=== PATIENT | female | born 1960 ===

== ENCOUNTER 2020-08-21 07:37 | Outpatient (REF) | payer OTHER, SELFPAY ==
[2020-08-21 10:23] LABS: Alanine Aminotransferase 14 U/L (0-31); Albumin Level 4.1 g/dL (3.5-5.0); Alkaline Phosphatase 73 U/L (39-117); Anion Gap 13 (12-20); Aspartate Amino Transferase 20 U/L (5-31); Bilirubin Total 0.6 mg/dL (0.0-1.0); Blood Urea Nitrogen 13 mg/dL (9-16); Calcium 8.7 mg/dL (8.4-10.2); Carbon Dioxide 26 mmol/L (22-29); Chloride 104 mmol/L (96-108); Cholesterol 225 mg/dL; Estimated Glomerular Filt Rate > 60; Glucose Fasting 102 mg/dL (60-99); HDL Cholesterol 51 mg/dL; LDL Cholesterol Calculated 152 mg/dl; Potassium 4.3 mmol/l (3.3-5.1); Sodium 139 mmol/L (135-145); Total Protein 7.6 g/dL (6.5-8.0); Triglycerides 112 mg/dL
== END 2020-08-21 07:38 | disposition home or self-care (01) ==
LOC: HO.LAB 07:37
PROVIDERS: PCP Internal Medicine; Visit Provider Internal Medicine
DX: E78.00 Pure hypercholesterolemia, unspecified (principal)
CPT/HCPCS: 80053; 80061

== ENCOUNTER 2021-07-02 06:51 | Outpatient (REF) | payer OTHER, SELFPAY ==
[2021-07-02 07:49] LABS: Alanine Aminotransferase 16 U/L (0-31); Albumin Level 4.2 g/dL (3.5-5.0); Alkaline Phosphatase 71 U/L (39-117); Anion Gap 11 (12-20); Aspartate Amino Transferase 19 U/L (5-31); Bilirubin Total 0.8 mg/dL (0.0-1.0); Blood Urea Nitrogen 9 mg/dL (9-16); Calcium 9.3 mg/dL (8.4-10.2); Carbon Dioxide 28 mmol/L (22-29); Chloride 106 mmol/L (96-108); Cholesterol 214 mg/dL; Estimated Glomerular Filt Rate > 60; Glucose Fasting 119 mg/dL (60-99); HDL Cholesterol 47 mg/dL; LDL Cholesterol Calculated 146 mg/dl; Potassium 4.5 mmol/L (3.3-5.1); Sodium 140 mmol/L (135-145); Total Protein 7.8 g/dL (6.5-8.0); Triglycerides 107 mg/dL
== END 2021-07-02 06:52 | disposition home or self-care (01) ==
LOC: HO.LAB 06:51
PROVIDERS: PCP Internal Medicine; Visit Provider Internal Medicine
DX: E78.5 Hyperlipidemia, unspecified (principal)
CPT/HCPCS: 36415; 80053; 80061

== ENCOUNTER 2021-08-02 12:34 | Emergency (ER) | payer OTHER, SELFPAY ==
[2021-08-02 13:45] VITALS: BP 122/79; PULSE 78; RESP 19; TEMP 36.6; O2SAT 97; BMI 36.1
--- NOTE | 2021-08-02 14:25 | ED.GENADULT ---
HPI - General Adult General Chief complaint: General Medical Stated complaint: covid + - lab & xray Time Seen by Provider: 08/02/21 13:48 Source: patient Mode of arrival: ambulatory Limitations: no limitations History of Present Illness HPI narrative: 60-year-old female with a history of hypertension and hyperlipidemia who presents to the ER for evaluation of possible pneumonia. She reports talking to her primary care doctor today who sent her to the ER to make sure she did not have pneumonia. She reports being diagnosed with COVID-19 about 2 weeks ago. She is slowly starting to feel better. She has no cough no shortness of breath no dyspnea on exertion and no chest pain. She feels mild generalized weakness but it is getting better as she is slowly doing more and more each day. She has no fever or chills at home. She has no calf tenderness or pain. She reports intermittent muscle weakness which is worse when she stays in bed for long periods of time. Overall her symptoms are significantly improved since she was 1st diagnosed. MD complaint: Generalized weakness Onset (ago): week(s) (2) Radiation: non-radiation Severity: mild Quality: aching Pain Consistency: intermittent Relieving factors: movement Exacerbating factors: immobilization and rest Associated symptoms: denies other symptoms Treatments prior to arrival: none Related Data Previous Rx's Medication Instructions Recorded loratadine 10 mg tablet 10 mg PO DAILY PRN 90 Days #90 tab 08/02/20 leg brace (DC Knee Brace) #1 ea 01/20/21 lisinopril 10 mg tablet 10 mg PO DAILY 90 Days #90 tab 05/26/21 simvastatin 40 mg tablet 40 mg PO DAILY 90 Days #90 tab 05/26/21 Allergies Allergy/AdvReac Type Severity Reaction Status Date / Time No Known Allergies Allergy Verified 01/20/21 10:38 Review of Systems Review of Systems: Constitutional: No Fever, No Chills ENT/Mouth: No sore throat, No Rhinorrhea, No Swallowing Difficulty Cardiovascular: No Chest Pain, No SOB, No Orthopnea, No Edema Respiratory: No Cough, No Sputum, No Wheezing, No dyspnea Gastrointestinal: No Nausea, No Vomiting, No Diarrhea, No abdominal Pain Musculoskeletal: No joint pain, + Myalgias Skin: No Skin Lesions, No rash Neuro: + Weakness, No Numbness, No Dizziness, No Headache Psych: No Anxiety/Panic, No Depression Heme/Lymph: No Bruising, No Lymphadenopathy [facility] Past Medical History Medical History (Updated 08/02/21 @ 14:27 by MARIAMA Cardona) Allergies Dyslipidemia Essential hypertension Left knee pain Surgical History History of varicose vein ligation Family History Family History Father Heart disease Mother Circulation problem Son No problems noted. Son No problems noted. Son No problems noted. Daughter No problems noted. Daughter No problems noted. Social History Social History Alcohol intake: never Advance Directives: No Advance Directives Information Provided: No Physical Exam Vital Signs: Vital Signs: Last Vital Signs Temp 98 F 08/02/21 13:45 Pulse 78 08/02/21 13:45 Resp 19 08/02/21 13:45 BP 122/79 08/02/21 13:45 Pulse Ox 97 08/02/21 13:45 Body Mass Index 36.1 Appearance: Alert. Oriented X3. No acute distress. HEENT: normal to inspection Neck: Normal inspection. Neck supple. CVS: Normal heart rate and rhythm. Pulses normal. Respiratory: No respiratory distress. Breath sounds normal. Abdomen: Soft and nontender. +BS x4. Skin: Skin warm and dry. Normal skin color. Normal skin turgor. No rashes. Extremities: No lower extremity edema. No calf tenderness. Neuro: Oriented X 3. Nonfocal Course Course Course Narrative: 60-year-old female presents to the ER for evaluation of possible pneumonia in the setting of COVID-19 diagnosis about 2 weeks ago. She reports feeling overall improved. Her vital signs are normal and her lungs are clear. She is speaking complete sentences without any respiratory distress. She has no cough shortness of breath or chest pain. No fevers. Clinically she does not have pneumonia. She was reassured, educated, and encouraged to follow-up with her primary care doctor as needed. She is stable for discharge from the emergency room. Discharge Plan Discharge Clinical Impression: COVID-19 Patient Disposition: Home, Self-Care Instructions: Covid-19 Viral Syndrome and Novel Coronavirus (ED) Hey/Ath Additional Instructions: Your examination and oxygen levels were normal today. Your lungs are clear. You clinically did not have pneumonia. Continue doing what we are doing at home. Slowly increase her activity to help build up her stamina. Take Motrin and Tylenol as needed for aches and pains as well as headaches. Follow-up with your doctor as needed. Prescriptions: No Action loratadine 10 mg tablet 10 mg PO DAILY PRN (Reason: allergy symptoms) 90 Days Qty: 90 RF: 4 simvastatin 40 mg tablet 40 mg PO DAILY 90 Days Qty: 90 RF: 3 lisinopril 10 mg tablet 10 mg PO DAILY 90 Days Qty: 90 RF: 3 (DME) DC Knee Brace Misc See Rx Instructions .ROUTE .MEDSUPPLY Qty: 1 RF: 0 Print Language: Citizen Of [place]
== END 2021-08-02 14:53 | disposition home or self-care (01) ==
PROVIDERS: Emergency Provider Emergency Medicine; PCP Internal Medicine
DX: U07.1 COVID-19 (principal); Z79.899 Other long term (current) drug therapy
CPT/HCPCS: 99283

== ENCOUNTER 2022-03-20 14:24 | Outpatient (REF) | payer OTHER, SELFPAY ==
--- NOTE | ~2022-03-20 | XR_ITS ---
EXAMINATION: XR KNEE, RIGHT CLINICAL INFORMATION: Pain COMPARISON: None TECHNIQUE: Four views of the right knee. FINDINGS: There is advanced degenerative change in the medial joint space, with spurring in the tibial spines and lateral femoral condyle. There is advanced degenerative change in the patellofemoral joint with a small joint effusion. No evidence though for fracture, dislocation or destructive lesion. XR/XR knee RT 4V IMPRESSION: Advanced multifocal degenerative change.
== END 2022-03-20 14:25 | disposition home or self-care (01) ==
LOC: HO.HMGCX 14:24
PROVIDERS: Visit Provider Physician Assistant
DX: M25.561 Pain in right knee (principal)
CPT/HCPCS: 73564

== ENCOUNTER 2022-11-20 09:12 | Outpatient (REF) | payer OTHER, SELFPAY ==
--- NOTE | ~2022-11-20 | MM_ITS ---
EXAMINATION: MM SCREENING DIGITAL BREAST TOMOSYNTHESIS, BILATERAL CLINICAL INFORMATION: Screening. Asymptomatic. The lifetime risk of breast cancer based on the Tyrer-Cuzick Model is 5%. COMPARISON: Mammography: 01/19/2016, 09/05/2007 TECHNIQUE: Digital breast tomosynthesis is performed in both the craniocaudal and mediolateral oblique views along with computer-aided detection (CAD). Synthesized 2D images are generated from the tomosynthesis. FINDINGS: There are scattered areas of fibroglandular density (ACR BI-RADS breast composition Category b). There are no significant masses, abnormal calcifications, or other abnormalities. Parenchymal pattern is similar to prior studies. There is no developing density or architectural abnormality. The axilla and skin contours are unremarkable. No significant changes. MM/MM tomosynthesis screening BI IMPRESSION: No mammographic evidence of malignancy. ASSESSMENT: BI-RADS 1: Negative RECOMMENDATION: Routine annual mammography screening. This patient's information was entered into a reminder system with a target due date for their next mammogram.
== END 2022-11-20 09:13 | disposition home or self-care (01) ==
LOC: HO.MAMMO 09:12
PROVIDERS: Visit Provider Internal Medicine
DX: Z12.31 Encounter for screening mammogram for malignant neoplasm of breast (principal)
CPT/HCPCS: 77063; 77067

== ENCOUNTER 2022-12-09 07:48 | Outpatient (REF) | payer OTHER, SELFPAY ==
[2022-12-09 09:05] LABS: Alanine Aminotransferase 14 U/L (0-31); Alkaline Phosphatase 77 U/L (39-117); Anion Gap 14 (12-20); Aspartate Amino Transferase 19 U/L (5-31); Blood Urea Nitrogen 12 mg/dL (9-16); Calcium 9.2 mg/dL (8.4-10.2); Carbon Dioxide 25 mmol/L (22-29); Chloride 106 mmol/L (96-108); Cholesterol 219 mg/dL; Estimated Glomerular Filt Rate > 60; Glucose Fasting 110 mg/dL (60-99); HDL Cholesterol 51 mg/dL; LDL Cholesterol Calculated 150 mg/dl; Potassium 4.5 mmol/L (3.3-5.1); Sodium 140 mmol/L (135-145); Total Protein 7.5 g/dL (6.5-8.0); Triglycerides 91 mg/dL
== END 2022-12-09 07:49 | disposition home or self-care (01) ==
LOC: HO.LAB 07:48
PROVIDERS: PCP Internal Medicine; Visit Provider Internal Medicine
DX: Z00.00 Encounter for general adult medical examination without abnormal findings (principal); E78.5 Hyperlipidemia, unspecified
CPT/HCPCS: 36415; 80053; 80061

== ENCOUNTER 2023-09-22 07:59 | Outpatient (REF) | payer OTHER, SELFPAY ==
[2023-09-22 09:11] LABS: Alanine Aminotransferase 14 U/L (0-31); Alkaline Phosphatase 76 U/L (39-117); Anion Gap 13 (12-20); Aspartate Amino Transferase 17 U/L (5-31); Bilirubin Total 0.6 mg/dL (0.0-1.0); Blood Urea Nitrogen 11 mg/dL (9-16); Calcium 9.2 mg/dL (8.4-10.2); Carbon Dioxide 25 mmol/L (22-29); Chloride 107 mmol/L (96-108); Cholesterol 208 mg/dL (<200); Estimated Glomerular Filt Rate > 60; Glucose Fasting 107 mg/dL (60-99); HDL Cholesterol 47 mg/dL (>40); LDL Cholesterol Calculated 139 mg/dL (<100); Potassium 3.9 mmol/L (3.3-5.1); Sodium 141 mmol/L (135-145); Total Protein 7.9 g/dL (6.5-8.0); Triglycerides 112 mg/dL (<150)
== END 2023-09-22 08:00 | disposition home or self-care (01) ==
LOC: HO.LAB 07:59
PROVIDERS: PCP Internal Medicine; Visit Provider Internal Medicine
DX: E78.5 Hyperlipidemia, unspecified (principal); I10 Essential (primary) hypertension
CPT/HCPCS: 36415; 80053; 80061

== ENCOUNTER 2023-10-08 16:31 | Outpatient (AMB) | payer OTHER, SELFPAY ==
[2023-10-08 16:33] VITALS: BP 132/82; PULSE 78; BMI 35.5
--- NOTE | 2023-10-08 16:33 | A.OFFPC_ITS ---
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 Accompanied by: Spouse Allergies No Known Allergies Allergy (Verified 10/08/23 16:44) Medication List - Last Reconciled 10/08/23 by Anne Mckenna MD acetaminophen (Tylenol Extra Strength) 500 mg PO Q6H PRN cane As directed leg brace (DC Knee Brace) As directed lisinopril 10 mg PO DAILY 90 days loratadine 10 mg PO DAILY PRN 90 days simvastatin 40 mg PO DAILY 90 days Tobacco use date assessed: 03/01/23 Dental Screening Dental Screen Date: 10/08/23 Did you have a dental visit in the last 12 months?: No Did you have a dental problem in the last 6 months where you did not have access to dental care?: No Was dental information given to patient?: Patient declined HPI HPI Comments History of Present Illness Details This is a 62-year-old female with essential hypertension and dyslipidemia that comes accompanied by for follow-up conditions. Blood pressure stable. Cholesterol has improved. No chest pain shortness of breath. [facility] Medical History (Updated 10/08/23 @ 16:52 by Anne Mckenna MD) Left knee pain Dyslipidemia Essential hypertension Allergies Surgical History History of varicose vein ligation Family History Father Heart disease Mother Circulation problem Son No problems noted. Son No problems noted. Son No problems noted. Daughter No problems noted. Daughter No problems noted. Social History Housing: House Alcohol intake: never Patient Tobacco Use Status: Never used Tobacco e-Cigarette/Vaping Use: Never Used Second Hand Smoke Exposure: No service: No Current occupational status: unemployed Cognitive needs: No Hearing needs: No Vision needs: No Questionnaire Thrive Questionnaire Date Thrive assessed: 03/01/23 CALI-7 AMB Questionnaire CALI-7 Date CALI - 7 assessed: 03/01/23 Source: Developed by Drs. Michael Mckoy, Aretha Espitia, Emiliano Max and colleagues, with an educational augusto from [employer]. Review of Systems Const All systems reviewed & are unremarkable except as noted in HPI and below Eyes Reports no additional complaints, Denies change in vision and Denies other visual disturbances Card Denies chest pain at rest, Denies chest pain with activity, Denies edema, Denies irregular heart rhythm, Denies claudication, Denies dyspnea, Denies dyspnea on exertion, Denies orthopnea, Denies paroxysmal nocturnal dyspnea and Denies slow heart rate Resp Denies cough, Denies dyspnea and Denies dyspnea on exertion GI Denies abdominal pain, Denies change in bowel habits, Denies excessive flatus, Denies nausea and Denies vomiting Denies urinary incontinence, Denies urinary hesitancy and Denies urinary urgency Musc Denies abnormal gait, Denies atrophy, Denies deformity and Denies limited range of motion Skin/Breast Denies bleeding lesions, Denies changing lesions and Denies rash Neuro Denies abnormal gait and Denies lack of coordination Physical exam (Primary Care) Vital Signs: Last Vital Signs Pulse 78 10/08/23 16:33 BP 132/82 10/08/23 16:33 BMI result Body Mass Index 35.5 Tobacco/Smoking Status: Tobacco use Status Tobacco use date assessed 03/01/23 10/08/23 16:34 Patient Tobacco Use Status Never used Tobacco 10/08/23 16:34 e-Cigarette/Vaping Use Never Used 10/08/23 16:34 Thrive Assessment: Date of Thrive Assessment Date Thrive assessed 03/01/23 10/08/23 16:34 Eyes General: appearance normal, both eyes and all related structures Eyelids: Yes eyelids normal Conjunctivae: conjunctivae normal Neck Neck: Yes normal visual inspection and Yes supple Resp Effort & Inspection: normal respiratory effort Auscultation: clear to auscultation bilaterally Cardio Jugular venous distension: no JVD Rate: regular rate Rhythm: regular rhythm Heart sounds: S1 normal heart sound present and S2 normal heart sound present Extrem General: Yes full ROM Assessment and Plan Assessment & Plan (1) Essential hypertension: Code(s): I10 - Essential (primary) hypertension Plan: Continue lisinopril. Blood pressure goal is equal or less than 130/80. (2) Dyslipidemia: Code(s): E78.5 - Hyperlipidemia, unspecified Plan: Continue statins. 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
== END 2023-10-08 17:01 | disposition home or self-care (01) ==
PROVIDERS: PCP Internal Medicine; Visit Provider Internal Medicine
DX: I10 Essential (primary) hypertension (principal); E78.5 Hyperlipidemia, unspecified
CPT/HCPCS: 99213

== ENCOUNTER 2024-07-10 15:38 | Outpatient (AMB) | payer OTHER, SELFPAY ==
[2024-07-10 15:54] VITALS: BP 122/80; BMI 35.2
--- NOTE | 2024-07-10 15:54 | A.OFFPC_ITS ---
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 Accompanied by: Daughter Allergies No Known Allergies Allergy (Verified 07/10/24 16:05) Medication List - Last Reconciled 07/10/24 by Anne Mckenna MD acetaminophen (Tylenol Extra Strength) 500 mg PO Q6H PRN cane As directed leg brace (DC Knee Brace) As directed lisinopril 10 mg PO DAILY 90 days loratadine 10 mg PO DAILY PRN 90 days simvastatin 40 mg PO DAILY 90 days Tobacco use date assessed: 07/10/24 Fall risk assessment: No Falls in past year Last assessed Fall Risk: 07/10/24 Dental Screening Dental Screen Date: 07/10/24 Did you have a dental visit in the last 12 months?: No Did you have a dental problem in the last 6 months where you did not have access to dental care?: No Was dental information given to patient?: Patient has dentist HPI HPI Comments History of Present Illness Details This is a 63-year-old female that comes accompanied by daughter for her physical exam. Mammogram done 2022 and another mammogram will be ordered. DEXA scan will also be order and has never been done. Cologuard done 2022 and was negative. Pap smear was done over 5 years ago and will be referred to [facility]. No chest pain or shortness on breath. Declines Tdap vaccine. She is obese with a BMI of 35.3 and was advised to diet and exercise to reach BMI goal less than 30. PENDING SALE TO [facility] Medical History Left knee pain Dyslipidemia Essential hypertension Allergies Surgical History History of varicose vein ligation Family History Father Heart disease Mother Circulation problem Son No problems noted. Son No problems noted. Son No problems noted. Daughter No problems noted. Daughter No problems noted. Social History Housing: House Alcohol intake: never Patient Tobacco Use Status: Never used Tobacco e-Cigarette/Vaping Use: Never Used Second Hand Smoke Exposure: No service: No Current occupational status: unemployed Cognitive needs: No Hearing needs: No Vision needs: No Questionnaire PHQ-9 Over the last 2 weeks, how often have you been bothered by any of the following problems? 1. Little interest or pleasure in doing things: not at all 2. Feeling down, depressed, or hopeless: not at all 3. Trouble falling or staying asleep, or sleeping too much: not at all 4. Feeling tired or having little energy: not at all 5. Poor appetite or overeating: not at all 6. Feeling bad about yourself - or that you are a failure or have let yourself or your family down: not at all 7. Trouble concentrating on things, such as reading the newspaper or watching television: not at all 8. Moving or speaking so slowly that other people could have noticed. Or the opposite - being so fidgety or restless that you have been moving around a lot more than usual: not at all 9. Thoughts that you would be better off or of hurting yourself in some way: not at all Total score: 0 Depression Screening Interpretation: Negative Depression Screening Done: Yes 51466 - PHQ-9 Billing: Yes Source: Developed by Drs. Michael Mckoy, Aretha Espitia, Emiliano Max and colleagues, with an educational augusto from [employer]. Thrive Questionnaire Date Thrive assessed: 07/10/24 I am a: Patient What is your living situation today?: I have a steady place to live Within the past 12 months, did the food you bought not last and you didn't have the money to get more?: I choose not to answer this question Within the past 12 months, did you worry whether your food would run out before you got money to buy more?: I choose not to answer this question Do you have trouble paying for medicines?: I choose not to answer this question Do you have trouble getting transportation to medical appointments?: I choose not to answer this question Do you have trouble paying your heating and electricity bill?: I choose not to answer this question Do you have trouble taking care of your child, family member or friend?: I elana se not to answer this question Do you have trouble with day-to-day activities such as bathing, preparing meals, shopping, managing finances, etc.?: I choose not to answer this question Are you currently unemployed and looking for a job?: I choose not to answer this question Are you interested in more education?: I choose not to answer this question Please select the resources that you would like help with: None Currently or been in a relationship where the following occur: No concerns reported THRIVE Score: 0 AUDIT C Alcohol Use Questionnaire (AUDIT-C) 1. How often do you have a drink containing alcohol?: Never Total Score: 0 Score Reviewed/Action Taken: No CALI-7 AMB Questionnaire CALI-7 Date CALI - 7 assessed: 07/10/24 Feeling nervous, anxious, or on edge: 0 = Not at all Not being able to stop or control worryin = Not at all Worrying too much about different things: 0 = Not at all Trouble relaxin = Not at all Being so restless that it is hard to sit still: 0 = Not at all Becoming easily annoyed or irritable: 0 = Not at all Feeling afraid as if something awful might happen: 0 = Not at all Total CALI-7 score (0-4 normal; 5-9 mild; 10-14 moderate; 15-21 severe): 0 Source: Developed by Drs. Michael Mckoy, Aretha Espitia, Emiliano Max and colleagues, with an educational augusto from [employer]. CALI-7 Assessment Billing CALI-7 Assessment Tool: CALI-7 Assessment 92941 Review of Systems Const All systems reviewed & are unremarkable except as noted in HPI and below Card Denies chest pain at rest, Denies chest pain with activity, Denies edema, Denies irregular heart rhythm, Denies claudication, Denies dyspnea, Denies dyspnea on exertion, Denies orthopnea, Denies paroxysmal nocturnal dyspnea and Denies slow heart rate Resp Denies cough, Denies dyspnea and Denies dyspnea on exertion GI Denies abdominal pain, Denies change in bowel habits, Denies excessive flatus, Denies nausea and Denies vomiting Denies urinary incontinence, Denies urinary hesitancy and Denies urinary urgency Musc Denies abnormal gait, Denies atrophy, Denies deformity and Denies limited range of motion Skin/Breast Denies bleeding lesions, Denies changing lesions and Denies rash Neuro Denies abnormal gait, Denies behavioral changes and Denies lack of coordination Psych Denies behavioral changes Physical exam (Primary Care) Vital Signs: Last Vital Signs BP 122/80 07/10/24 15:54 BMI result Body Mass Index 35.2 BMI Assessment/Plan discussion: High BMI High, discussed plan: lifestyle, weight reduction, dietary and physical activity Tobacco/Smoking Status: Tobacco use Status Tobacco use date assessed 07/10/24 07/10/24 15:58 Patient Tobacco Use Status Never used Tobacco 07/10/24 15:58 e-Cigarette/Vaping Use Never Used 07/10/24 15:58 PHQ-9: PHQ-9 Score PHQ-9: Total score 0 07/10/24 16:08 Depression Screening Interpretation: Negative Thrive Assessment: Date of Thrive Assessment Date Thrive assessed 07/10/24 07/10/24 15:58 Currently or been in a relationship where the following occur: No concerns reported HENMT Head: Yes normal to inspection, Yes normocephalic and Yes atraumatic Ears: external ears normal Eyes General: appearance normal, both eyes and all related structures Eyelids: Yes eyelids normal Conjunctivae: conjunctivae normal Neck Neck: Yes normal visual inspection and Yes supple Resp Effort & Inspection: normal respiratory effort Auscultation: clear to auscultation bilaterally Cardio Jugular venous distension: no JVD Rate: regular rate Rhythm: regular rhythm Heart sounds: S1 normal heart sound present and S2 normal heart sound present GI Inspection: Yes normal to inspection Palpation (GI): Soft to palpation and nontender Auscultation: normal bowel sounds Skin General skin exam: no rashes or lesions noted Neuro General: no focal motor deficits Extrem General: Yes full ROM Psych Appearance: grossly normal Assessment and Plan Assessment & Plan (1) Physical exam: Code(s): Z00.00 - Encounter for general adult medical examination without abnormal findings Plan: Repeat in a year. Orders: Orders MM screening mammo BI Today Z12.31 - Encounter for screening mammogram for malignant neoplasm of breast XR DEXA axial skeleton Today N95.9 - Unspecified menopausal and perimenopausal disorder Lipid Panel Today E78.5 - Hyperlipidemia, unspecified, Z00.00 - Encounter for general adult medical examination without abnormal findings Comprehensive [place]. 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
== END 2024-07-10 16:18 | disposition home or self-care (01) ==
PROVIDERS: PCP Internal Medicine; Visit Provider Internal Medicine
DX: Z00.00 Encounter for general adult medical examination without abnormal findings (principal)
CPT/HCPCS: 99396

== ENCOUNTER 2024-07-26 07:34 | Outpatient (REF) | payer OTHER, SELFPAY ==
[2024-07-26 09:20] LABS: Alanine Aminotransferase 13 U/L (0-31); Albumin Level 4.1 g/dL (3.5-5.0); Alkaline Phosphatase 79 U/L (39-117); Anion Gap 12 (12-20); Aspartate Amino Transferase 19 U/L (5-31); Bilirubin Total 0.9 mg/dL (0.0-1.0); Blood Urea Nitrogen 12 mg/dL (9-16); Calcium 9.6 mg/dL (8.4-10.2); Carbon Dioxide 25 mmol/L (22-29); Chloride 106 mmol/L (96-108); Cholesterol 207 mg/dL (<200); Estimated Glomerular Filt Rate > 60; Glucose Fasting 110 mg/dL (60-99); HDL Cholesterol 44 mg/dL (>40); LDL Cholesterol Calculated 140 mg/dL (<100); Potassium 4.3 mmol/L (3.3-5.1); Sodium 139 mmol/L (135-145); Total Protein 8.2 g/dL (6.5-8.0); Triglycerides 118 mg/dL (<150)
== END 2024-07-26 07:35 | disposition home or self-care (01) ==
LOC: HO.LAB 07:34
PROVIDERS: PCP Internal Medicine; Visit Provider Internal Medicine
DX: Z00.00 Encounter for general adult medical examination without abnormal findings (principal); E78.5 Hyperlipidemia, unspecified
CPT/HCPCS: 36415; 80053; 80061

== ENCOUNTER 2025-01-08 10:56 | Outpatient (REF) | payer MEDICARE, SELFPAY ==
--- NOTE | ~2025-01-08 | MM_ITS ---
EXAMINATION: DXA BONE DENSITY AXIAL HISTORY: Estrogen deficiency TECHNIQUE: [employer] Dual energy absorptiometry (DEXA) of the lumbar spine, total left hip, and femoral neck was performed. COMPARISON: There are no prior studies for comparison. FINDINGS: The bone mineral density of the lumbar spine is 1.395 with a T-score of 1.8, and a Z-score of 2.6. The bone mineral density of the left total hip is 0.856 with a T-score of -1.2, and a Z-score of -0.6. The bone mineral density of the left femoral neck is 0.864 with a T-score of -1.3, and a Z-score of -0.3. FRACTURE RISK: The FRAX index suggests a risk of major osteoporotic fracture of 4.3%, and of hip fracture 0.4%. MM/XR DEXA axial skeleton IMPRESSION: Based on bone mineral density, and according to World Health Organization (WHO) criteria, the diagnosis is consistent with osteopenia. All bone density values are in grams per centimeter squared (g/cm2). Statistically, 68% of repeat scans fall within 1 SD (+/- 0.010 g/cm2 for AP spine L1-L4) and 1 SD (+/- 0.012 g/cm2 for femur total) FRAX is a trademark of the [employer]'s [place] [facility] Met[facility] [employer] Disease, a World Health Organization (WHO) Collaborating Center. Electronically signed by: Michael Dsouza MD 01/08/2025 12:12 PM EDT
== END 2025-01-08 10:57 | disposition home or self-care (01) ==
LOC: HO.MAMMO 10:56
PROVIDERS: Visit Provider Internal Medicine
DX: Z12.31 Encounter for screening mammogram for malignant neoplasm of breast (principal); Z13.820 Encounter for screening for osteoporosis; Z78.0 Asymptomatic menopausal state
CPT/HCPCS: 77063; 77067; 77080

== ENCOUNTER → 2025-01-08 11:30 | Outpatient (BNV) | payer MEDICARE, SELFPAY | PROVIDERS: Visit Provider Radiology Diagnostic Radiology | DX: E28.39 Other primary ovarian failure (principal) | CPT/HCPCS: 77085 ==

== ENCOUNTER 2025-04-23 08:13 | Outpatient (AMB) | payer MEDICARE, SELFPAY ==
[2025-04-23 08:27] VITALS: BP 118/72; PULSE 105; TEMP 36.9; O2SAT 98
--- NOTE | 2025-04-23 08:27 | AM.OFFWIN_ITS ---
Intake Vital Signs 04/23/25 08:27 Height 5 ft 3 in BMI Reason not done Patient refused/unable BP 118/72 Blood Pressure Location Rt brachial Position Sitting Pulse 105 H Pulse Source Pulse Oximeter Temp 98.4 F Temp Source Oral Pulse Oximetry (%) 98 Intake Visit Reasons: EP Arthritis in knees Intake Note: patient presents for cj knee pain, RT>LT, unable to stretch leg x1.5 mo. Also c/o cj hand pain. Denies fall/injury. Pt has h/o osteopenia and arthritis Patient Tobacco Use Status: Never used Tobacco Allergies No Known Allergies Allergy (Verified 04/23/25 08:34) Do you need a note to return to daycare/school/sports/work: No HPI HPI Comments History of Present Illness Details 64 y/o Female patient who presents to [facility] walk in clinic with c/o B/L Knee pain. Denies injury or trauma to the joints. She is unable to walk due to pain and stiffness - currently on wheelchair. [facility] Medical History (Updated 04/23/25 @ 09:31 by Leilani Downs NP) Osteoarthritis of right knee Left knee pain Dyslipidemia Essential hypertension Allergies Surgical History History of varicose vein ligation Family History Father Heart disease Mother Circulation problem Son No problems noted. Son No problems noted. Son No problems noted. Daughter No problems noted. Daughter No problems noted. Social History Housing: House Alcohol intake: never Patient Tobacco Use Status: Never used Tobacco e-Cigarette/Vaping Use: Never Used Second Hand Smoke Exposure: No service: No Current occupational status: unemployed Cognitive needs: No Hearing needs: No Vision needs: No Review of Systems Const All systems reviewed & are unremarkable except as noted in HPI and below Physical Exam Vital Signs: Last Vital Signs Temp 98.4 F 04/23/25 08:27 Pulse 105 H 04/23/25 08:27 BP 118/72 04/23/25 08:27 Pulse Ox 98 04/23/25 08:27 Const General: no acute distress Nutritional Appearance: obese Orientation/consciousness: patient oriented x3 Limitations: language barrier and wheelchair Neuro General: patient oriented x3 and moves all extremities Extrem Right lower extremity: knee Details: normal to inspection, tenderness Location: of the patella and abnormal ROM Details: pain with active ROM during and pain with passive ROM during; no swelling, no ecchymosis and no crepitus Left lower extremity: knee Details: tenderness Location: of the patella and of the popliteal fossa and abnormal ROM Details: pain with active ROM and pain with passive ROM; no swelling, no ecchymosis and no crepitus Psych Speech and movement: Normal speech and movement present Assessment & Plan Assessment & Plan (1) Osteoarthritis of left knee: Code(s): M17.12 - Unilateral primary osteoarthritis, left knee Qualifiers: Osteoarthritis type: primary Qualified Code(s): M17.12 - Unilateral primary osteoarthritis, left knee Plan: Ordered Meloxicam, Acetaminophen for pain relief. Placed referrals to Ortho/PT Ice/Heat Ordered B/L Knee Braces. (2) Osteoarthritis of right knee: Code(s): M17.11 - Unilateral primary osteoarthritis, right knee Qualifiers: Osteoarthritis type: primary Qualified Code(s): M17.11 - Unilateral primary osteoarthritis, right knee Plan: Ordered Meloxicam, Acetaminophen for pain relief. Placed referrals to Ortho/PT Ice/Heat Ordered B/L Knee Braces. Orders: Orders PT Evaluation and Treatment Today M17.11 - Unilateral primary osteoarthritis, right knee, M17.12 - Unilateral primary osteoarthritis, left knee Referrals Orthopedics Referral M17.11 - Unilateral primary osteoarthritis, right knee, M17.12 - Unilateral primary osteoarthritis, left knee Medications: New meloxicam 15 mg PO DAILY 14 tabs 0RF 14 days M17.11 - Unilateral primary osteoarthritis, right knee, M17.12 - Unilateral primary osteoarthritis, left knee cyclobenzaprine 5 mg PO BEDTIME 10 tabs 0RF M17.11 - Unilateral primary osteoarthritis, right knee, M17.12 - Unilateral primary osteoarthritis, left knee Changed From acetaminophen (Tylenol Extra Strength) 500 mg PO Q6H PRN 90 tabs 1RF pain M17.11 - Unilateral primary osteoarthritis, right knee, M17.12 - Unilateral primary osteoarthritis, left knee To acetaminophen (Tylenol Extra Strength) 1,000 mg (2 x 500 mg) PO Q6H PRN 90 tabs 0RF pain M17.11 - Unilateral primary osteoarthritis, right knee, M17.12 - Unilateral primary osteoarthritis, left knee Coding Level of Care Code Est Pt Level 4 (24448) Diagnoses Primary osteoarthritis of left knee M17.12 Osteoarthritis type: primary Primary osteoarthritis of right knee M17.11 Osteoarthritis type: primary Time Spent (min) 20
== END 2025-04-23 09:45 | disposition home or self-care (01) ==
PROVIDERS: PCP Internal Medicine; Visit Provider Nurse Practitioner Family
DX: M17.0 Bilateral primary osteoarthritis of knee (principal)

== ENCOUNTER → 2025-04-23 08:13 | Outpatient (BNVA) | payer MEDICARE, SELFPAY | PROVIDERS: PCP Internal Medicine; Visit Provider Nurse Practitioner Family | DX: M17.0 Bilateral primary osteoarthritis of knee (principal) | CPT/HCPCS: 99212 ==

== ENCOUNTER 2025-08-06 16:45 | Outpatient (AMB) | payer BC, SELFPAY ==
[2025-08-06 16:50] VITALS: BP 122/78; PULSE 110; O2SAT 98
--- NOTE | 2025-08-06 16:50 | A.OFFPC_ITS ---
Vital Signs 08/06/25 16:50 Height 5 ft 3 in BMI Reason not done Patient refused/unable BP 122/78 Blood Pressure Location Lt brachial Position Sitting Pulse 110 H Pulse Source Pulse Oximeter Pulse Oximetry (%) 98 Oxygen Delivery Method Room Air Intake Visit Reasons: Annual Exam Child Neurologist Required: No Accompanied by: Self / Same As Patient Allergies No Known Allergies Allergy (Verified 08/06/25 17:00) Medication List - Last Reconciled 08/06/25 by Anne Mckenna MD acetaminophen (Tylenol Extra Strength) 1,000 mg (2 x 500 mg) PO Q6H PRN calcium carbonate-vitamin D3 500 mg-5 mcg (200 unit) (Oyster Shell Calcium- Vitamin D3) 1 tab PO BID cane As directed cyclobenzaprine 5 mg PO BEDTIME leg brace (DC Knee Brace) As directed lisinopril 10 mg PO DAILY 90 days loratadine 10 mg PO DAILY PRN 90 days meloxicam 15 mg PO DAILY 14 days simvastatin 40 mg PO DAILY 90 days Tobacco use date assessed: 08/06/25 Fall risk assessment: No Falls in past year Last assessed Fall Risk: 08/06/25 Dental Screening Dental Screen Date: 08/06/25 Did you have a dental visit in the last 12 months?: Yes Did you have a dental problem in the last 6 months where you did not have access to dental care?: No Was dental information given to patient?: Patient has dentist HPI HPI Comments History of Present Illness Details The patient is a 64-year-old female presenting for an annual physical examination and management of chronic conditions. The patient has a history of osteopenia, diagnosed following a bone density scan earlier this year. She is currently advised to take calcium and vitamin D supplements, although she finds the calcium tablets difficult to swallow. Alternative dietary sources of calcium, such as yogurt, have been suggested to supplement her intake. The patient has a history of hypertension, managed with Lisinopril 10 mg daily. She also takes Simvastatin 40 mg for hyperlipidemia. The patient reports bilateral knee pain, which has been present for several y ears but has worsened over the past five months. She has not yet seen an orthopedist but plans to do so, and further imaging is anticipated. She has a history of allergic rhinitis, for which she uses Loratadine as needed. The patient underwent surgery for varicose veins in the left leg. In terms of preventative care, she has declined the pneumonia, flu, and Tdap vaccines. Her last mammogram was normal, and her next Cologuard test is due in 2022. PENDING SALE TO [facility] Medical History Osteoarthritis of right knee Left knee pain Dyslipidemia Essential hypertension Allergies Surgical History History of varicose vein ligation Family History Father Heart disease Mother Circulation problem Son No problems noted. Son No problems noted. Son No problems noted. Daughter No problems noted. Daughter No problems noted. Social History Housing: House Alcohol intake: never Patient Tobacco Use Status: Never used Tobacco e-Cigarette/Vaping Use: Never Used Second Hand Smoke Exposure: No service: No Current occupational status: unemployed Cognitive needs: No Hearing needs: No Vision needs: No Questionnaire PHQ-9 Over the last 2 weeks, how often have you been bothered by any of the following problems? 1. Little interest or pleasure in doing things: not at all 2. Feeling down, depressed, or hopeless: not at all 3. Trouble falling or staying asleep, or sleeping too much: not at all 4. Feeling tired or having little energy: not at all 5. Poor appetite or overeating: not at all 6. Feeling bad about yourself - or that you are a failure or have let yourself or your family down: not at all 7. Trouble concentrating on things, such as reading the newspaper or watching television: not at all 8. Moving or speaking so slowly that other people could have noticed. Or the opposite - being so fidgety or restless that you have been moving around a lot more than usual: not at all 9. Thoughts that you would be better off or of hurting yourself in some way: not at all Total score: 0 Depression Screening Interpretation: Negative Depression Screening Done: Yes 73569 - PHQ-9 Billing: Yes Source: Developed by Drs. Michael Mckoy, Aretha B.W. Emiliano Espitia and colleagues, with an educational augusto from [employer]. Thrive Questionnaire Date Thrive assessed: 08/06/25 I am a: Patient What is your living situation today?: I have a steady place to live Within the past 12 months, did the food you bought not last and you didn't have the money to get more?: I choose not to answer this question Within the past 12 months, did you worry whether your food would run out before you got money to buy more?: I choose not to answer this question Do you have trouble paying for medicines?: I choose not to answer this question Do you have trouble getting transportation to medical appointments?: I choose not to answer this question Do you have trouble paying your heating and electricity bill?: I choose not to answer this question Do you have trouble taking care of your child, family member or friend?: I choose not to answer this question Do you have trouble with day-to-day activities such as bathing, preparing meals, shopping, managing finances, etc.?: I choose not to answer this question Are you currently unemployed and looking for a job?: I choose not to answer this question Are you interested in more education?: I choose not to answer this question Please select the resources that you would like help with: None Currently or been in a relationship where the following occur: No concerns reported THRIVE Score: 0 AUDIT C Alcohol Use Questionnaire (AUDIT-C) 1. How often do you have a drink containing alcohol?: Never 3. How often do you have six or more drinks on one occasion?: Never Total Score: 0 Score Reviewed/Action Taken: No CALI-7 AMB Questionnaire CALI-7 Date CALI - 7 assessed: 08/06/25 Feeling nervous, anxious, or on edge: 0 = Not at all Not being able to stop or control worryin = Not at all Worrying too much about different things: 0 = Not at all Trouble relaxin = Not at all Being so restless that it is hard to sit still: 0 = Not at all Becoming easily annoyed or irritable: 0 = Not at all Feeling afraid as if something awful might happen: 0 = Not at all Total CALI-7 score (0-4 normal; 5-9 mild; 10-14 moderate; 15-21 severe): 0 Source: Developed by Drs. Michael Mckoy, Aretha Espitia, Emiliano Max and colleagues, with an educational augusto from [employer]. CALI-7 Assessment Billing CALI-7 Assessment Tool: CALI-7 Assessment 17509 Review of Systems Const All systems reviewed & are unremarkable except as noted in HPI and below Card Denies chest pain at rest, Denies chest pain with activity, Denies edema, Denies irregular heart rhythm, Denies claudication, Denies dyspnea, Denies dyspnea on exertion, Denies orthopnea, Denies paroxysmal nocturnal dyspnea and Denies slow heart rate Resp Denies cough, Denies dyspnea and Denies dyspnea on exertion Musc Denies abnormal gait, Denies atrophy, Denies deformity and Denies limited range of motion Skin/Breast Denies bleeding lesions, Denies changing lesions and Denies rash Neuro Denies abnormal gait and Denies lack of coordination Physical exam (Primary Care) Vital Signs: Last Vital Signs Pulse 110 H 08/06/25 16:50 BP 122/78 08/06/25 16:50 Pulse Ox 98 08/06/25 16:50 Oxygen Delivery Method Room Air 08/06/25 16:50 Tobacco/Smoking Status: Tobacco use Status Tobacco use date assessed 08/06/25 08/06/25 16:52 Patient Tobacco Use Status Never used Tobacco 08/06/25 16:52 e-Cigarette/Vaping Use Never Used 08/06/25 16:52 PHQ-9: PHQ-9 Score PHQ-9: Total score 0 08/06/25 17:03 Depression Screening Interpretation: Negative Thrive Assessment: Date of Thrive Assessment Date Thrive assessed 08/06/25 08/06/25 16:52 Currently or been in a relationship where the following occur: No concerns reported Const Limitations: wheelchair HENMT Head: Yes normal to inspection, Yes normocephalic and Yes atraumatic Ears: external ears normal Eyes General: appearance normal, both eyes and all related structures Eyelids: Yes eyelids normal Conjunctivae: conjunctivae normal Neck Neck: Yes normal visual inspection and Yes supple Resp Effort & Inspection: normal respiratory effort Auscultation: clear to auscultation bilaterally Cardio Jugular venous distension: no JVD Rate: regular rate Rhythm: regular rhythm Heart sounds: S1 normal heart sound present and S2 normal heart sound present GI Inspection: Yes normal to inspection Palpation (GI): Soft to palpation and nontender Auscultation: normal bowel sounds Skin General skin exam: no rashes or lesions noted Neuro General: no focal motor deficits Extrem General: Yes full ROM Psych Appearance: grossly normal Coding Level of Care Code Est Pt Level 3 (11289) Est Pt Prev Care >65y(11044) Diagnoses Physical exam Z00.00 Primary osteoarthritis of left knee M17.12 Osteoarthritis type: primary Primary osteoarthritis of right knee M17.11 Osteoarthritis type: primary Additional Codes CALI-7 Assessment Billing - CALI-7 Assessment Tool: CALI-7 Assessment 27785 ([id number]) PHQ-9 - 78149 - PHQ-9 Billing: Yes ([id number]) Time Spent (min) 32 Assessment & Plan Assessment & Plan (1) Physical exam: Code(s): Z00.00 - Encounter for general adult medical examination without abnormal findings Category: Medical (2) Osteoarthritis of left knee: Code(s): M17.12 - Unilateral primary osteoarthritis, left knee Category: Medical Qualifiers: Osteoarthritis type: primary Qualified Code(s): M17.12 - Unilateral primary osteoarthritis, left knee (3) Osteoarthritis of right knee: Code(s): M17.11 - Unilateral primary osteoarthritis, right knee Category: Medical Qualifiers: Osteoarthritis type: primary Qualified Code(s): M17.11 - Unilateral primary osteoarthritis, right knee Plan Plan Patient was informed and verbally consented to the use of an ambient scribe for clinic note documentation during this visit. 1. Physical exam The patient declined pneumonia, flu, and Tdap vaccines. Regular screenings, including mammograms and Cologuard tests, are scheduled as per guidelines. 2. Bilateral Knee Pain The patient is advised to consult an orthopedist for further evaluation and management of bilateral knee pain. Further imaging studies are anticipated to assess the condition. Orders: Orders PT Evaluation and Treatment Today M17.11 - Unilateral primary osteoarthritis, right knee, M17.12 - Unilateral primary osteoarthritis, left knee XR knee LT 2V Today M17.12 - Unilateral primary osteoarthritis, left knee XR knee RT 2V Today M17.11 - Unilateral primary osteoarthritis, right knee Referrals Orthopedics Referral M17.11 - Unilateral primary osteoarthritis, right knee, M17.12 - Unilateral primary osteoarthritis, left knee
== END 2025-08-06 17:13 | disposition home or self-care (01) ==
LOC: HO.HMCH 16:45
PROVIDERS: PCP Internal Medicine; Visit Provider Internal Medicine
DX: Z00.00 Encounter for general adult medical examination without abnormal findings (principal); M17.0 Bilateral primary osteoarthritis of knee

== ENCOUNTER → 2025-08-06 16:45 | Outpatient (BNVA) | payer BC, SELFPAY | PROVIDERS: PCP Internal Medicine; Visit Provider Internal Medicine | DX: Z00.00 Encounter for general adult medical examination without abnormal findings (principal); M17.0 Bilateral primary osteoarthritis of knee; Z13.31 Encounter for screening for depression; Z13.39 Encounter for screening examination for other mental health and behavioral disorders | CPT/HCPCS: 96127 ==

== ENCOUNTER 2025-09-03 08:32 | Outpatient (REF) | payer MEDICARE, SELFPAY ==
--- NOTE | ~2025-09-03 | XR_ITS ---
XR KNEE DANIEL 3V HISTORY: Bilateral knee pain. COMPARISON: Right knee radiographs 03/20/2022. TECHNIQUE: AP, lateral, and patellofemoral views of each knee were obtained. FINDINGS: RIGHT KNEE: Limited AP view due to patient inability to fully extend the knee. There is grossly normal bone mineralization. There appears to be moderate and likely severe degenerative arthritis in the medial lateral compartments. There is moderate to severe degenerative arthritis in the patellofemoral compartment. There are large marginal osteophytes present. There is subchondral sclerosis of the tricompartmental articular surfaces. No evidence of significant joint effusion on the lateral projection, although limited evaluation due to partial flexion. No soft tissue abnormality. LEFT KNEE: Limited AP view due to patient inability to fully extend the knee. There is grossly normal bone mineralization. There appears to be moderate and likely severe degenerative arthritis in the medial lateral compartments. There is moderate to severe degenerative arthritis in the patellofemoral compartment. There are large marginal osteophytes present. There is subchondral sclerosis of the tricompartmental articular surfaces. No evidence of significant joint effusion on the lateral projection, although limited evaluation due to partial flexion. No soft tissue abnormality. XR/XR Knee Daniel 3V IMPRESSION: 1. Limited AP views bilaterally due to patient inability to fully extend the knees. 2. Moderate to severe tricompartmental osteoarthrosis in both knees. This does appear progressed in the right knee when compared with the 2021 exam. 3. No evidence of significant joint effusion of either knee. Electronically signed by: Melo Myers MD 09/03/2025 10:08 AM [facility] [place]
== END 2025-09-03 08:33 | disposition home or self-care (01) ==
LOC: HO.HOSX 08:32
PROVIDERS: Visit Provider Orthopaedic Surgery
DX: M17.12 Unilateral primary osteoarthritis, left knee (principal); M17.11 Unilateral primary osteoarthritis, right knee
CPT/HCPCS: 73562

== ENCOUNTER 2025-09-03 09:32 | Outpatient (AMB) | payer BC, SELFPAY ==
--- NOTE | 2025-09-03 09:55 | MHC.OFFVIS ---
Vital Signs 09/03/25 09:55 Height 5 ft 3 in Intake Visit Reasons: New Pt - Bilateral Knee Pain Intake Note: Ofe is a 64 year old female who presents with complaints of progressively worsening bilateral knee pains. The patient describes her pains as sharp and severe in nature. Her pains have gotten worse over the last few years in spite of continued non operative treatment. She has failed the last 3 months of conservative treatment which has included knee braces, Tylenol, anti-inflammatory medicines, a home exercise program and physical therapy exercises. At this point her bilateral knee pains are interfering with her activities of daily living and her ability to sleep well through the night. The patient has also tried topical creams which gave her minimal relief. Allergies No Known Allergies Allergy (Verified 09/03/25 10:02) Medication List - Last Reviewed 09/03/25 by JULITO Little acetaminophen (Tylenol Extra Strength) 1,000 mg (2 x 500 mg) PO Q6H PRN calcium carbonate-vitamin D3 500 mg-5 mcg (200 unit) (Oyster Shell Calcium-Vitamin D3) 1 tab PO BID cane As directed cyclobenzaprine 5 mg PO BEDTIME leg brace (DC Knee Brace) As directed lisinopril 10 mg PO DAILY 90 days loratadine 10 mg PO DAILY PRN 90 days meloxicam 15 mg PO DAILY 14 days simvastatin 40 mg PO DAILY 90 days [facility] Medical History Osteoarthritis of right knee Left knee pain Dyslipidemia Essential hypertension Allergies Surgical History History of varicose vein ligation Family History Father Heart disease Mother Circulation problem Son No problems noted. Son No problems noted. Son No problems noted. Daughter No problems noted. Daughter No problems noted. Social History (Updated 09/03/25 @ 10:03 by JULITO Little) Housing: House Alcohol intake: never Patient Tobacco Use Status: Never used Tobacco e-Cigarette/Vaping Use: Never Used Second Hand Smoke Exposure: No service: No Current occupational status: unemployed Current occupation: right hand Cognitive needs: No Hearing needs: No Vision needs: No Physical Exam Const Other: Well-nourished well-developed very friendly female awake alert and oriented x3 in no acute distress Extrem Other: Bilateral knee examination shows minimal effusions, palpable crepitus with range of motion, range of motion from 45 degrees to 90 degrees Results Reviewed Results Reviewed: X-rays of the patient's bilateral knees taken today show severe joint space narrowing, subchondral sclerosis, no acute bony abnormalities Assessment & Plan Assessment & Plan (1) Osteoarthritis of left knee: Code(s): M17.12 - Unilateral primary osteoarthritis, left knee Category: Medical Qualifiers: Osteoarthritis type: primary Qualified Code(s): M17.12 - Unilateral primary osteoarthritis, left knee (2) Osteoarthritis of right knee: Code(s): M17.11 - Unilateral primary osteoarthritis, right knee Category: Medical Qualifiers: Osteoarthritis type: primary Qualified Code(s): M17.11 - Unilateral primary osteoarthritis, right knee Plan Ms. Ruvalcaba presents with bilateral knee pains due to osteoarthritis. I had a lengthy discussion with the patient regarding the treatment options. She wishes to hold off on surgery if at all possible. I agree with this plan. I will see if the patient's insurance company will cover a viscosupplementation injection, such as Durolane, for both of her knees. I will see her back once the injections are available. Feel free to call me at any time should questions regarding her orthopedic management arise. Thank you very much for asking me to see this very friendly patient. I spent 21 minutes in reviewing the patient's records and imaging studies, seeing the patient and documenting in the medical record. Orders: Orders XR Knee Daniel 3V Today M25.561 - Pain in right knee, M25.562 - Pain in left knee Coding Level of Care Code New Pt Level 3 (30146) Complex EM visit Add On G2211 Diagnoses Primary osteoarthritis of left knee M17.12 Osteoarthritis type: primary Primary osteoarthritis of right knee M17.11 Osteoarthritis type: primary
== END 2025-09-03 10:16 | disposition home or self-care (01) ==
LOC: HO.HOS 09:33
PROVIDERS: PCP Internal Medicine; Visit Provider Orthopaedic Surgery
DX: M17.0 Bilateral primary osteoarthritis of knee (principal)
CPT/HCPCS: 99203

== ENCOUNTER → 2025-09-03 09:42 | Outpatient (BNV) | payer BC, SELFPAY | PROVIDERS: Visit Provider Radiology Diagnostic Radiology | DX: M17.0 Bilateral primary osteoarthritis of knee (principal) | CPT/HCPCS: 73562 ==

== ENCOUNTER 2025-09-12 07:00 | Outpatient (REF) | payer MEDICARE, SELFPAY ==
[2025-09-12 08:19] LABS: Alanine Aminotransferase 14 U/L (0-31); Albumin Level 3.8 g/dL (3.5-5.0); Alkaline Phosphatase 86 U/L (39-117); Anion Gap 13 (12-20); Aspartate Amino Transferase 24 U/L (5-31); Blood Urea Nitrogen 16 mg/dL (9-16); Calcium 9.2 mg/dL (8.4-10.2); Carbon Dioxide 24 mmol/L (22-29); Chloride 105 mmol/L (96-108); Cholesterol 238 mg/dL (<200); Estimated Glomerular Filt Rate > 60; HDL Cholesterol 40 mg/dL (>40); Potassium 3.9 mmol/L (3.3-5.1); Sodium 138 mmol/L (135-145); Total Protein 7.8 g/dL (6.5-8.0); Triglycerides 142 mg/dL (<150)
== END 2025-09-12 07:01 | disposition home or self-care (01) ==
LOC: HO.LAB 07:00
PROVIDERS: PCP Internal Medicine; Visit Provider Internal Medicine
DX: I10 Essential (primary) hypertension (principal); E55.9 Vitamin D deficiency, unspecified; E78.5 Hyperlipidemia, unspecified
CPT/HCPCS: 36415; 80053; 80061; 82306